=== PATIENT | female | born 2000 | race Two or more races ===

== ENCOUNTER 2025-08-13 11:53 | Emergency (ER) | payer MEDICAID ==
[~2025-08-13] VITALS: Ht 157.5 cm; Wt 81.6 kg
[2025-08-13] MEDS ORDERED: FAMOTIDINE/PF INJ 20 MG/2 ML VIAL IV ONE (12:50)
[2025-08-13] MEDS: IV NS 0.9% 1,000 ML BAG IV ONE (13:00)
[2025-08-13] MEDS: FAMOTIDINE/PF INJ 20 MG/2 ML VIAL IV ONE (13:06)
[2025-08-13] MEDS ORDERED: PRED20TA PO (13:55)
[2025-08-13] MEDS ORDERED: DIPH25CA83 PO (13:55)
[2025-08-13] MEDS ORDERED: FAMO-131 PO (13:55)
[2025-08-13] MEDS ORDERED: EPIN0.3P3 IM (13:55)
[2025-08-13 14:00] VITALS: BP 118/77; TEMP 98.8; O2SAT 100
== END 2025-08-13 14:00 | disposition home or self-care (01) ==
LOC: ER 11:57
DX: R09.89 Other specified symptoms and signs involving the circulatory and respiratory systems (principal); T78.1XXA Other adverse food reactions, not elsewhere classified, initial encounter; Z79.52 Long term (current) use of systemic steroids; Z91.013 Allergy to seafood; X58.XXXA Exposure to other specified factors, initial encounter
CPT/HCPCS: 99285; 96374; 96375; 96361; J2919; J1200; J1308; J7030